=== PATIENT | male | born 1965 | race Caucasian/White ===

== ENCOUNTER 2020-08-31 18:07 | Emergency (ER) | payer OTHER ==
[2020-08-31] MEDS ORDERED: Morphine 4 MG/ML Syringe IVPUSH ONE (18:40)
[2020-08-31] MEDS ORDERED: Ondansetron 4 MG/2 ML SDV IVPUSH ONE (18:40)
--- NOTE | 2020-08-31 19:03 | EDM.PDOC ---
ED HPI GENERAL MEDICAL PROBLEM - General Chief Complaint: Upper Extremity Injury/Pain Stated Complaint: LT WRIST INJURED SEVERELY Time Seen by Provider: 08/31/20 18:38 Source of Information: Reports: Patient History Limitations: Reports: No Limitations - History of Present Illness INITIAL COMMENTS - FREE TEXT/NARRATIVE: HISTORY AND PHYSICAL: History of present illness: Review of systems: As per history of present illness and below otherwise all systems reviewed and negative. Past medical history: As per history of present illness and as reviewed below otherwise noncont ributory. Surgical history: As per history of present illness and as reviewed below otherwise noncontributory. Social history: See social history for further information Family history: As per history of present illness and as reviewed below otherwise noncontributory. Physical exam: General: Well developed and well nourished. Alert and orientated x 3. Nontoxic in appearance and in no acute distress. Vital signs are stable and have been reviewed by me. Nursing notes were reviewed. HEENT: Atraumatic, normocephalic, pupils equal and reactive bilaterally, negative for conjunctival pallor or scleral icterus, mucous membranes moist, TMs normal bilaterally, throat clear, neck supple, nontender, trachea midline. No drooling or trismus noted. No meningeal signs. No hot potato voice noted. Lungs: Clear to auscultation bilaterally. No wheezes, rales, or rhonchi. Chest nontender. Normal work of breathing, no accessory muscles used. Heart: S1S2, regular rate and rhythm without overt murmur, gallops, or rubs. No JVD. No peripheral edema Abdomen: Soft, nondistended, nontender. Normoactive bowel sounds. Negative for masses or costovertebral tenderness. Pelvis: Stable nontender. Genitourinary/Rectal: Deferred. Skin: Intact, warm, dry. No lesions or rashes noted. Hematologic: No petechiae or purpra. Mucosa appropriate color and normal nail bed color and refill. Extremities: Atraumatic, moves all extremities per self without difficulty or deficits, negative for cords or calf pain. Neurovascular unremarkable. Neuro: Awake, alert, oriented. Cranial nerves II through XII unremarkable. Cerebellum unremarkable. Motor and sensory unremarkable throughout. Exam nonfocal. Psychiatric: Mood and affect are appropriate. Normal thought process. Answering questions appropriately. Notes: *This patient was seen and evaluated during the 2019 SARS-CoV-2 novel coronavirus pandemic period. Community viral transmission is ongoing at time of this encounter and the emergency department is operating under pandemic response procedures. X-ray shows an acute, oblique, intra-articular, mildly angulated fracture of the distal radius. Custom fiberglass thumb spica splint applied. Pre and post pulses are strong with good cap refill. Skin pink, warm and dry. I have talked with the patient about today's findings, in addition to providing specific details for plan of care. Reassessment at the time of disposition demonstrates that the patient is in no acute distress. The patient is stable for discharge, counseling was provided and we discussed in great detail signs and symptoms that would prompt them to return to the Emergency Department. Medication, follow up and supportive care measures were reviewed and discussed. Voices understanding and is agreeable to plan of care. Denies any further questions or concerns at this time. Diagnostics: X-ray Therapeutics: Thumb spica fiberglass splint and sling Prescription: [place] (#30) Impression: Radial fracture, left Plan: 1. You were evaluated today on an emergent basis. Your x-ray shows a distal radius fracture. Rest, ice and elevate as able. Wear splint and sling as directed until you follow up with Orthopedics. Call tomorrow to set up a follow up appointment. 2. You can alternate Tylenol and ibuprofen as needed for pain and fever management. [place] as needed for moderate to severe pain. This medication may cause drowsiness, so do not take while driving or needing to be functioning outside the house. 3. If your symptoms should worsen, new symptoms develop or any of the signs and symptoms we discussed should arise please return to the emergency room or call 911 (if needed). Definitive disposition and diagnosis as appropriate pending reevaluation and review of above. left wrist Pain Score (Numeric/FACES): 9 - Related Data Allergies Allergy/AdvReac Type Severity Reaction Status Date / Time codeine Allergy Itching Verified 08/31/20 18:22 Home Meds: Home Meds . [No Known Home Meds] 08/31/20 [History] Past Medical History - Infectious Disease History Infectious Disease History: Reports: Chicken Pox, Shingles - Past Surgical History GI Surgical History: Reports: Cholecystectomy Musculoskeletal Surgical History: Reports: Other (See Below) Other Musculoskeletal Surgeries/Procedures:: right wrist Social & Family History - Family History Family Medical History: No Pertinent Family History Oncologic: Reports: Breast Other Oncologic Family History: Cancer - Tobacco Use Tobacco Use Status *Q: Former Tobacco User Used Tobacco, but Quit: Yes Month/Year Tobacco Last Used: 2011 - Recreational Drug Use Recreational Drug Use: No Review of Systems - Review of Systems Review Of Systems: Comprehensive ROS is negative, except as noted in HPI. ED EXAM, GENERAL - Physical Exam Exam: See Below (See dictation) Course - Vital Signs Last Recorded V/S: Last Vital Signs Temp 97.8 F 08/31/20 18:19 Pulse 74 08/31/20 18:19 Resp 20 08/31/20 18:19 BP 149/92 H 08/31/20 18:19 Pulse Ox 95 08/31/20 18:19 - Orders/Labs/Meds Orders: Active Orders 24 hr Category Date Time Status Wrist Comp Min 3V Lt [CR] Stat Exams 08/31/20 18:28 Taken Meds: Medications Discontinued Medications Generic Name Dose Route Start Last Admin Trade Name Carlyn PRN Reason Stop Dose Admin Morphine Sulfate 4 mg 08/31/20 18:40 Morphine 4 Mg/Ml Syringe IVPUSH 08/31/20 18:41 ONETIME ONE Ondansetron HCl 4 mg 08/31/20 18:40 Ondansetron 4 Mg/2 Ml Sdv IVPUSH 08/31/20 18:41 ONETIME ONE Departure - Departure Time of Disposition: 19:16 Disposition: Home, Self-Care 01 Clinical Impression: Distal radius fracture, left Qualifiers: Encounter type: initial encounter Fracture type: closed Fracture morphology: other fracture Qualified Code(s): S52.592A - Other fractures of lower end of left radius, initial encounter for closed fracture - Discharge Information Instructions: Radial Head Fracture, [id number] Referrals: PCP,None [Primary Care Provider] - Additional Instructions: The following information is given to patients seen in the emergency department who are being discharged to home. This information is to outline your options for follow-up care. We provide all patients seen in our emergency department with a follow-up referral. The need for follow-up, as well as the timing and circumstances, are variable depending upon the specifics of your emergency department visit. If you don't have a primary care physician on staff, we will provide you with a referral. We always advise you to contact your personal physician following an emergency department visit to inform them of the circumstance of the visit and for follow-up with them and/or the need for any referrals to a consulting specialist. The emergency department will also refer you to a specialist when appropriate. This referral assures that you have the opportunity for follow-up care with a specialist. All of these measure are taken in an effort to provide you with optimal care, which includes your follow-up. Under all circumstances we always encourage you to contact your private physician who remains a resource for coordinating your care. When calling for follow-up care, please make the office aware that this follow-up is from your recent emergency room visit. If for any reason you are refused follow-up, please contact the [facility] Emergency Department at and asked to speak to the emergency department charge nurse. [facility] Professional [address], [address] [place] [address] Dr Pascal, Orthopedist [facility] [address] [place] [address] Orthopedics at [facility] [address] [place] [address] [facility] [address] [place], [place] [id number] Thank you for choosing the [facility] emergency department in [place] for your medical needs today. It was a pleasure caring for you. Today you were seen in the emergency department for wrist fracture. 1. You were evaluated today on an emergent basis. Your x-ray shows a distal radius fracture. Rest, ice and elevate as able. Wear splint and sling as directed until you follow up with Orthopedics. Call tomorrow to set up a follow up appointment. 2. You can alternate Tylenol and ibuprofen as needed for pain and fever management. [place] as needed for moderate to severe pain. This medication may cause drowsiness, so do not take while driving or needing to be functioning outside the house. 3. If your symptoms should worsen, new symptoms develop or any of the signs and symptoms we discussed should arise please return to the emergency room or call 911 (if needed). Sepsis Event Note (ED) - Evaluation Sepsis Screening Result: No Definite Risk - Focused Exam Vital Signs: Vital Signs Temp Pulse Resp BP Pulse Ox 08/31/20 18:19 97.8 F 74 20 149/92 H 95 - My Orders Last 24 Hours: My Active Orders 08/31/20 18:28 Wrist Comp Min 3V Lt [CR] Stat - Assessment/Plan Last 24 Hours: My Active Orders 08/31/20 18:28 Wrist Comp Min 3V Lt [CR] Stat
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
== END 2020-08-31 19:50 | disposition home or self-care (01) ==
LOC: MW.ED 18:07
DX: S52.592A Other fractures of lower end of left radius, initial encounter for closed fracture (principal); Z88.5 Allergy status to narcotic agent; Z87.891 Personal history of nicotine dependence; V89.2XXA Person injured in unspecified motor-vehicle accident, traffic, initial encounter
CPT/HCPCS: 29125; 73110; 96374; 96375; 99283; J2270; J2405

== ENCOUNTER 2020-10-31 19:27 | Emergency (ER) | payer OTHER ==
[2020-10-31] MEDS ORDERED: Lidocaine 1% with EPINEPHrine 1:100,000 20 ML MDV INJECT ONE (20:47)
[2020-10-31] MEDS ORDERED: Diphtheria,Pertussis(Acell),Tetanus Vaccine 0.5 ML Syringe IM ONE (21:56)
--- NOTE | 2020-10-31 22:06 | CR ---
Indication: Laceration possible foreign body Technique: Four views of the right tibia and fibula. Comparison: O comparison Findings: Chondrocalcinosis. Normal alignment. Soft tissue laceration soft tissue gas anterior tibia soft tissues. No radiopaque foreign body. Minimal irregularity along the anterior proximal tibia seen on the lateral view without definite fracture visualized. Dictated by Mandy Sanchez MD @ 10/31/2020 10:05:[address] Mandy Sanchez @ Oct 31 2020 10:05PM
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
== END 2020-10-31 23:00 | disposition home or self-care (01) ==
LOC: MW.ED 19:27
DX: S81.811A Laceration without foreign body, right lower leg, initial encounter (principal); Z23 Encounter for immunization; Z88.5 Allergy status to narcotic agent; V19.9XXA Pedal cyclist (driver) (passenger) injured in unspecified traffic accident, initial encounter; W26.8XXA Contact with other sharp object(s), not elsewhere classified, initial encounter
CPT/HCPCS: 12002; 73590-26-RT; 73590-RT; 90471; 90715; 99283; 99283-25

== ENCOUNTER 2020-11-02 18:01 | Emergency (ER) | payer OTHER ==
[2020-11-02] MEDS ORDERED: Sodium Chloride 0.9% 2.5 ML Syringe FLUSH PRN (18:52)
[2020-11-02] MEDS ORDERED: Ketorolac 30 MG/ML SDV IVPUSH ONE (18:52)
[2020-11-02] MEDS ORDERED: Sodium Chloride 0.9% 10 ML Syringe FLUSH PRN (18:52)
[2020-11-02] MEDS ORDERED: Sodium Chloride 0.9% 1,000 ML IV ONE (18:52)
[2020-11-02] MEDS ORDERED: VANCOmycin 2 GM/400 ML 2 GM in Premix Bag 1 BAG IV ONE (18:57)
[2020-11-02 20:12] LABS: BLOOD UREA NITROGEN,BUN 20 mg/dL (7.0-18.0); CARBON DIOXIDE,CO2 25.4 mmol/L (21.0-32.0); CHLORIDE,CL 104 mmol/L (98-107); GLUCOSE RANDOM 115 mg/dL (74-106); POTASSIUM,K 3.8 mmol/L (3.5-5.1); SODIUM,NA 141 mmol/L (136-148)
--- NOTE | 2020-11-02 20:14 | EDM.PDOC ---
<King Dobson - Last Filed: 11/02/20 23:16> ED HPI GENERAL MEDICAL PROBLEM - General Chief Complaint: Wound Recheck Stated Complaint: STITCHES LOOK INFECTED Time Seen by Provider: 11/02/20 18:44 - Related Data Allergies Allergy/AdvReac Type Severity Reaction Status Date / Time codeine Allergy Itching Verified 11/02/20 18:16 Home Meds: Home Meds Sulfamethoxazole/Trimethoprim [Bactrim Ds Tablet] 1 each PO BID 10 Days #20 tablet 11/02/20 [Rx] cephALEXin [Keflex] 500 mg PO BID 11/02/20 [History] Departure - Departure Time of Disposition: 23:17 Disposition: Home, Self-Care 01 Condition: Good Clinical Impression: Wound infection - Discharge Information *PRESCRIPTION DRUG MONITORING PROGRAM REVIEWED*: Not Applicable *COPY OF PRESCRIPTION DRUG MONITORING REPORT IN PATIENT CODIE: Not Applicable Prescriptions: Sulfamethoxazole/Trimethoprim [Bactrim Ds Tablet] 1 each PO BID 10 Days #20 tablet Instructions: Wound Care, Adult Referrals: Kip Brown MD [Primary Care Provider] - Lior Danielson MD [Physician] - Forms: ED Department Discharge Additional Instructions: Please change the dressings at least once a day. If you have worsening swelling worsening pain spreading redness or fevers please return to the ER. Please follow-up with your primary care doctor if your primary care doctor would prefer you to see the general surgeon or unable to see you within the next few days and please follow-up with Dr. Danielson. The following information is given to patients seen in the emergency department who are being discharged to home. This information is to outline your options for follow-up care. We provide all patients seen in our emergency department with a follow-up referral. The need for follow-up, as well as the timing and circumstances, are variable depending upon the specifics of your emergency department visit. If you don't have a primary care physician on staff, we will provide you with a referral. We always advise you to contact your personal physician following an emergency department visit to inform them of the circumstance of the visit and for follow-up with them and/or the need for any referrals to a consulting specialist. The emergency department will also refer you to a specialist when appropriate. This referral assures that you have the opportunity for follow-up care with a specialist. All of these measure are taken in an effort to provide you with optimal care, which includes your follow-up. Under all circumstances we always encourage you to contact your private physician who remains a resource for coordinating your care. When calling for follow-up care, please make the office aware that this follow-up is from your recent emergency room visit. If for any reason you are refused follow-up, please contact the [facility] Emergency [facility] at and asked to speak to the emergency department charge nurse. - Assessment/Plan Assessment:: Patient received in signout from prior provider at [address] scan shows no clear provable retained foreign body. On my reassessment patient's pain is remarkably better." Patient was only given Toradol. There is some reference of edema in the anterior tibialis muscle. However the patient has very minimal pain at this time is inferior anterior tibialis compartment is soft on my evaluation he has no pain with passive stretch of the anterior tibialis muscle he has no paresthesias. In short no findings that would suggest compartment syndrome. Given the concern for wound infection plan to asked Dr. Connelly the general surgeon to evaluate the patient to see if he requires formal washout. 2315: Pt discussed with Dr. Danielson. Sutures were removed and we will add Bactrim to his antibiotics. Patient will follow up with his primary care provider if primary care uncomfortable or unable to see the patient patient to follow-up with Dr. Danielson. Strict return precautions discussed and understood. <Alecia Sharma - Last Filed: 11/03/20 10:43> ED HPI GENERAL MEDICAL PROBLEM - General Source of Information: Reports: Patient History Limitations: Reports: No Limitations - History of Present Illness INITIAL COMMENTS - FREE TEXT/NARRATIVE: HISTORY AND PHYSICAL: History of present illness: Patient is a 54-year-old male who presents to the emergency room with complaints of increased redness, swelling, and pain to his right lower leg. The patient was in the emergency department on 10/31/2020 after lodging a stick in his right lower leg which required suture repair. The patient has been on Keflex since then. He denies fever, nausea, vomiting, dental malaise, or any other associated systemic features of infection. The patient denies any fever, chills, headache, change in vision, syncope or near syncope. Denies any chest pain, back pain, shortness of breath or cough. Denies any abdominal pain, diarrhea, constipation or dysuria. Has not noted any blood in urine or stool. Patient has been eating and drinking appropriately. Emergency department the patient is hemodynamically stable with a pulse of 82 and a blood pressure of 131/71. He is afebrile with a temperature of 97.6. Review of systems: As per history of present illness and below otherwise all systems reviewed and negative. Past medical history: As per history of present illness and as reviewed below otherwise noncontributory. Surgical history: As per history of present illness and as reviewed below otherwise noncontributory. Social history: See social history for further information Family history: As per history of present illness and as reviewed below otherwise noncontributory. Physical exam: General: Well developed and well nourished. Alert and orientated x 3. Nontoxic in appearance and in no acute distress. Vital signs are stable and have been reviewed by me. Nursing notes were reviewed. HEENT: Atraumatic, normocephalic, pupils equal and reactive bilaterally, negative for conjunctival pallor or scleral icterus, mucous membranes moist, TMs normal bilaterally, throat clear, neck supple, nontender, trachea midline. No drooling or trismus noted. No meningeal signs. No hot potato voice noted. Lungs: Clear to auscultation bilaterally. No wheezes, rales, or rhonchi. Chest nontender. Normal work of breathing, no accessory muscles used. Heart: S1S2, regular rate and rhythm without overt murmur, gallops, or rubs. No JVD. No peripheral edema Abdomen: Soft, nondistended, nontender. Normoactive bowel sounds. Negative for masses or costovertebral tenderness. Skin: Right lower extremity wound approximated with sutures surrounded by erythema and swelling. Hematologic: No petechiae or purpra. Mucosa appropriate color and normal nail bed color and refill. Extremities: Right lower extremity with erythema and swelling. RLE tender to touch. Moves all other extremities per self without difficulty or deficits, negative for cords or calf pain. Neurovascular unremarkable. Neuro: Awake, alert, oriented. Cranial nerves II through XII unremarkable. Cerebellum unremarkable. Motor and sensory unremarkable throughout. Exam nonfocal. Psychiatric: Mood and affect are appropriate. Normal thought process. Answering questions appropriately. Notes: *This patient was seen and evaluated during the 2019 SARS-CoV-2 novel coronavirus pandemic period. Community viral transmission is ongoing at time of this encounter and the emergency department is operating under pandemic re sponse procedures. As stated above the patient is presenting with a right lower leg cellulitis around the approximated laceration. The patient stated a stick had pierced his leg on 10/31/2020 which was irrigated with 750 mL of saline and explored with no foreign body found. The patient states his leg is quite painful. The patient does not have any systemic signs such as general malaise or a fever of infection. I will order blood work, vancomycin IV, IV fluids, Toradol for pain control. Dr. Noble consulted on treatment. Dr. Pearson consulted on treatment. CT of his right lower leg ordered. 21:40: The patient states that his leg feels much better. He is now able to stand on his leg, however, it remains red, swollen and very tender to touch. Has had his CT and we are waiting on results. 22:00: Report to Dr. Dobson. Diagnostics: CBC, CMP, CT right lower leg Therapeutics: IV fluids, Toradol Definitive disposition and diagnosis as appropriate pending reevaluation and review of above. Right leg Pain Score (Numeric/FACES): 7 Past Medical History HEENT History: Reports: None Cardiovascular History: Reports: None Respiratory History: Reports: None Gastrointestinal History: Reports: None Genitourinary History: Reports: None Musculoskeletal History: Reports: None Neurological History: Reports: None Psychiatric History: Reports: None Endocrine/Metabolic History: Reports: None Insulin Pump Model and Nuclear Waste Process Operator: None Hematologic History: Reports: None Immunologic History: Reports: None Oncologic (Cancer) History: Reports: None Dermatologic History: Reports: None - Infectious Disease History Infectious Disease History: Reports: Chicken Pox, Shingles - Past Surgical History GI Surgical History: Reports: Cholecystectomy Musculoskeletal Surgical History: Reports: Other (See Below) Other Musculoskeletal Surgeries/Procedures:: right wrist Social & Family History - Family History Family Medical History: No Pertinent Family History Oncologic: Reports: Breast Other Oncologic Family History: Cancer - Tobacco Use Tobacco Use Status *Q: Never Tobacco User - Caffeine Use Caffeine Use: Reports: None - Recreational Drug Use Recreational Drug Use: No ED ROS GENERAL - Review of Systems Review Of Systems: Comprehensive ROS is negative, except as noted in HPI. ED EXAM, SKIN/RASH Exam: See Below (See dictation) Course - Vital Signs Last Recorded V/S: Last Vital Signs Temp 97.6 F 11/02/20 18:17 Pulse 83 11/02/20 19:37 Resp 20 11/02/20 19:37 BP 141/76 H 11/02/20 19:37 Pulse Ox 94 L 11/02/20 19:37 - Orders/Labs/Meds Orders: Active Orders 24 hr Category Date Time Status Saline Lock Insert [OM.PC] Stat Oth 11/02/20 18:52 Ordered Labs: Laboratory Tests 11/02/20 11/02/20 11/02/20 Range/Units 19:32 19:32 20:45 WBC 5.15 (4.0-11.0) K/uL RBC 4.73 (4.50-5.90) M/uL Hgb 15.0 (13.0-17.0) g/dL Hct 44.8 (38.0-50.0) % MCV 94.7 (80.0-98.0) fL MCH 31.7 (27.0-32.0) pg MCHC 33.5 (31.0-37.0) g/dL RDW Std Deviation 49.7 (28.0-62.0) fl RDW Coeff of Polly 14 (11.0-15.0) % Plt Count 149 L (150-400) K/uL MPV 10.20 (7.40-12.00) fL Neut % (Auto) 67.1 (48.0-80.0) % Lymph % (Auto) 20.4 (16.0-40.0) % [place] % (Auto) 11.1 (0.0-15.0) % Eos % (Auto) 0.8 (0.0-7.0) % Baso % (Auto) 0.6 (0.0-1.5) % Neut # (Auto) 3.5 (1.4-5.7) K/uL Lymph # (Auto) 1.1 (0.6-2.4) K/uL [place] # (Auto) 0.6 (0.0-0.8) K/uL Eos # (Auto) 0.0 (0.0-0.7) K/uL Baso # (Auto) 0.0 (0.0-0.1) K/uL Nucleated RBC % 0.0 /100WBC Nucleated RBCs # 0 K/uL Sodium 141 (136-148) mmol/L Potassium 3.8 (3.5-5.1) mmol/L Chloride 104 (98-107) mmol/L Carbon Dioxide 25.4 (21.0-32.0) mmol/L BUN 20 H (7.0-18.0) mg/dL Creatinine 1.1 (0.8-1.3) mg/dL Est Cr Clr Drug Dosing 79.86 mL/min Estimated GFR (MDRD) > 60.0 ml/min Glucose 115 H (74-106) mg/dL Calcium 8.5 (8.5-10.1) mg/dL Total Bilirubin 0.6 (0.2-1.0) mg/dL AST 143 H (15-37) IU/L ALT 121 H (14-63) IU/L Alkaline Phosphatase 110 (46-116) U/L Total Protein 7.2 (6.4-8.2) g/dL Albumin 3.5 (3.4-5.0) g/dL Globulin 3.7 (2.6-4.0) g/dL Albumin/Globulin Ratio 0.9 (0.9-1.6) SARS-CoV-2 RNA (DMITRY) NEGATIVE (NEGATIVE) Meds: Medications Discontinued Medications Generic Name Dose Route Start Last Admin Trade Name Freq PRN Reason Stop Dose Admin Bacitracin 1 dose 11/02/20 23:15 Bacitracin Oint 1 Gm U/D Packet TOP 11/02/20 23:16 ONETIME ONE Sodium Chloride 1,000 mls @ 999 mls/hr 11/02/20 18:52 11/02/20 19:17 Normal Saline IV 11/02/20 19:52 999 mls/hr .BOLUS ONE Administration Vancomycin HCl 2 gm/ Premix 400 mls @ 200 mls/hr 11/02/20 18:57 11/02/20 19:26 IV 11/02/20 20:56 200 mls/hr STAT ONE Administration Iopamidol 2,100 ml 11/02/20 21:02 11/02/20 21:24 Iopamidol 755 Mg/Ml 500 Ml Multipack Bottle IVPUSH 11/02/20 21:03 100 ml ONETIME STA Administration Ketorolac Tromethamine 30 mg 11/02/20 18:52 11/02/20 19:17 Ketorolac 30 Mg/Ml Sdv IVPUSH 11/02/20 18:53 30 mg ONETIME ONE Administration Sodium Chloride 10 ml 11/02/20 18:52 Sodium Chloride 0.9% 10 Ml Syringe FLUSH ASDIRECTED PRN Keep Vein Open Sodium Chloride 2.5 ml 11/02/20 18:52 Sodium Chloride 0.9% 2.5 Ml Syringe FLUSH ASDIRECTED PRN Keep Vein Open Sepsis Event Note (ED) - Evaluation Sepsis Screening Result: No Definite Risk - My Orders Last 24 Hours: My Active Orders 11/02/20 18:52 Saline Lock Insert [OM.PC] Stat - Assessment/Plan Last 24 Hours: My Active Orders 11/02/20 18:52 Saline Lock Insert [OM.PC] Stat
[2020-11-02] MEDS ORDERED: Iopamidol 755 MG/ML 500 ML Multipack Bottle IVPUSH STA (21:02)
--- NOTE | 2020-11-02 22:37 | CT ---
For Patients: As a result of the Century Cures Act, medical imaging exams and procedure reports are released immediately into your electronic medical record. You may view this report before your referring provider. If you have questions, please contact your health care provider. INDICATION: Penetrating trauma with erythema and edema. TECHNIQUE: Right tibia/fibula CT with intravenous contrast, 100 mL Isovue-300. Coronal and sagittal reformats. Notably, the distal tibia/fibula and ankle joint are excluded from the field of view. COMPARISON: Right tibia/fibula radiographs 10/31/2020. FINDINGS: Osseous: No acute fracture, osseous destruction, or periosteal reaction. Corticated ossific density overlying the tibial tubercle, likely sequela of remote [place]-Schlatter`s disease. - Joints: The right ankle is not included within the field of view. Knee demonstrates mild tricompartmental degenerative changes with extensive chondrocalcinosis. No appreciable joint effusion. - Soft tissues: Extensive subcutaneous edema throughout the anterior aspect of the right lower leg most pronounced proximally. Elongated mildly hyperdense collection within the subcutaneous tissues overlying the anterior compartment musculature in the proximal lower leg measuring 2.4 x 1.0 x 2.7 cm (series 201, image 70; series 2 4, image 49), likely a small hematoma. Multiple gaseous locules extending along the superficial investing fascia of the anterior muscular compartment at the level of the proximal and mid lower leg. No radiopaque foreign body or additional collection identified. IMPRESSION: 1. Sequela of penetrating injury to the anterior aspect of the right proximal lower leg. No radiopaque foreign body or organized/drainable collection identified. 2. Multiple small gaseous locules extending along the anterior superficial investing fascia of the right proximal and mid lower leg, possibly related to penetrating injury though gas-forming infection could have a similar appearance and should be clinically evaluated. 3. Extensive subcutaneous edema predominating in the anterior aspect of the right lower leg, as may be seen with cellulitis in appropriate clinical setting. 4. Probable small anterior subcutaneous hematoma near the site of penetrating injury. Please note that all CT scans at this facility use dose modulation, iterative reconstruction, and/or weight-based dosing when appropriate to reduce radiation dose to as low as reasonably achievable. Dictated by Lior Mullins MD @ 11/03/2020 7:28:[address] Lior Mullins @ Nov 03 2020 7:28AM
[2020-11-02] MEDS ORDERED: Bacitracin Oint 1 GM U/D Packet TOP ONE (23:15)
== END 2020-11-02 23:54 | disposition home or self-care (01) ==
LOC: MW.ED 18:01
DX: T81.40XA Infection following a procedure, unspecified, initial encounter (principal); Z88.5 Allergy status to narcotic agent; Z20.822 Contact with and (suspected) exposure to COVID-19
CPT/HCPCS: 36415; 73701; 80053; 85025; 87635; 96365; 96366; 96375; 99284; J1885; J3370; J7030; Q9967; U0002

== ENCOUNTER 2021-04-24 13:22 | Emergency (ER) | payer OTHER ==
[2021-04-24] MEDS ORDERED: Acetaminophen 500 MG Tab PO ONE (13:49)
--- NOTE | 2021-04-24 14:23 | CR ---
INDICATION: Chest pain and shortness of breath. Worsening cough. TECHNIQUE: Chest 1 view. COMPARISON: None. FINDINGS: Cardiovascular and mediastinum: Heart size and vasculature are normal in caliber and appearance. Lungs and pleural spaces: Possible infiltrates in the lateral aspect of the left mid lung zone. Remainder of the lungs and pleural spaces are clear. Bones and soft tissues: No significant findings. IMPRESSION: Possible left lateral lung infiltrates. Acute pneumonia or pneumonitis is possible. Remainder of exam is unremarkable. Dictated by Gregory Peterson MD @ 04/24/2021 2:22:52 PM (Electronically Signed)
[2021-04-24 14:29] LABS: BLOOD UREA NITROGEN,BUN 16 mg/dL (7.0-18.0); CARBON DIOXIDE,CO2 28.7 mmol/L (21.0-32.0); CHLORIDE,CL 102 mmol/L (98-107); GLUCOSE RANDOM 100 mg/dL (74-106); SODIUM,NA 141 mmol/L (136-148)
[2021-04-24] MEDS ORDERED: Albuterol/Ipratropium 3.0-0.5 MG/3 ML Neb Soln NEB ONE (14:29)
[2021-04-24 14:39] LABS: CORONAVIRUS COVID-19 NAA POSITIVE (NEGATIVE); INFLUENZA A NAA NEGATIVE (NEGATIVE); INFLUENZA B NAA NEGATIVE (NEGATIVE)
--- NOTE | 2021-04-24 15:59 | EDM.PDOC ---
ED HPI GENERAL MEDICAL PROBLEM - General Chief Complaint: Respiratory Problem Stated Complaint: SHORTNESS OF BREATHE,CHEST PAIN Time Seen by Provider: 04/24/21 13:35 - History of Present Illness INITIAL COMMENTS - FREE TEXT/NARRATIVE: CHIEF COMPLAINT(S): Chest pain HISTORY OF PRESENT ILLNESS: This is a 55-year-old man without any significant past medical history who comes to the emergency department with a chief co mplaint of chest pain. Patient states that he has been experiencing chest pain on and off for the last 8 days. He describes the chest pain as achy and rated 4-5 out of 10. He describes it as constant. He denies any radiation of this pain. He states that he has exacerbation of his pain when he takes deep breaths. He denies any hemoptysis, lower extremity edema, recent travel, recent surgery or prior history of DVT or PE. He states that he does have a nonproductive cough. He denies any fever, chills, or body aches. He states that he is not vaccinated against Covid but states that he is not exposed to Covid. States that he has not taken anything for the pain. He denies any other symptoms. REVIEW OF SYSTEMS: Constitutional: Denies fever, chills. Eyes: Denies eye pain Ears, Nose, Mouth, & Throat: Denies earache Cardiovascular: Positive for chest pain Respiratory: Positive for shortness of breath and nonproductive cough. Gastrointestinal: Denies Nausea, vomiting, diarrhea, hematochezia. Genitourinary: Denies hematuria Skin:Denies a rash MSK: Denies joint pain Neurological: Denies blurred vision Psychiatric: Denies depression PAST MEDICAL HISTORY: As per history of present illness and as reviewed below otherwise noncontributory. SURGICAL HISTORY: As per history of present illness and as reviewed below otherwise noncontributory. SOCIAL HISTORY: As per history of present illness and as reviewed below otherwise noncontributory. FAMILY HISTORY: As per history of present illness and as reviewed below otherwise noncontributory. EXAMINATION OF ORGAN SYSTEMS/BODY AREAS: Constitutional: Blood pressure was 128/83, heart rate 90, respiratory rate 24 with an oxygen saturation of 95% on room air. Temperature 38.4. General: Well-appearing man who is in no acute distress Psychiatric: Appropriate mood and affect. Eyes: No scleral icterus or conjunctival erythema ENMT: Moist mucous membranes. No pharyngeal erythema Cardiovascular: Regular, rate, and rhythm. No gallops, murmurs, or rubs. Bilateral upper extremity pulses symmetric and intact. No peripheral edema. No JVD. Respiratory: Mild expiratory wheezing. No rales or rhonchi. Patient speaking in full sentences Gastrointestinal: Soft, non-tender, non-distended. Normoactive bowel sounds Genitourinary: No suprapubic tenderness Musculoskeletal: Normal range of motion. Skin: No lesions or abrasions. Neurological: Alert, GCS 15 MEDICAL DECISION MAKING AND COURSE IN THE ED WITH INTERPRETATION/REVIEW OF DIAGNOSTIC STUDIES: This is a 55-year-old man without any reported past medical history and prior tobacco use who presents to the emergency department with chest pain and pleuritic chest pain with some wheezing on examination. I do suspect the possibility of underlying COPD that is undiagnosed. We will provide the patient with 1 DuoNeb treatment and reevaluate. For the fever we will provide the patient with Tylenol. The patient currently does meet SIRS and septic criteria however symptoms are also consistent with Covid. We will evaluate for viral cause for symptoms at this time prior to initiating antibiotics or obtaining blood cultures. Will trend CBC, CMP, INR, lactic acid, magnesium and troponin. Obtain a chest x-ray. Cardiac monitoring at this time did reveal sinus rhythm and pulse oximetry with good waveform was 98% on room air. Patient was amenable to this plan DDx: COVID-19 pneumonia, influenza, pneumonia, ACS Laboratory: CBC is unremarkable. INR is normal. CMP reveals elevated creatinine of 1.4. Transaminitis with an AST of 43 and ALT of 68. Troponin is negative. Covid is positive. Influenza is negative The radiological images were viewed by myself along with reading the report from the radiologist. Chest x-ray reveals possible left lateral lung infiltrates. After labs and imaging I did reevaluate the patient. At this time the patient's vitals continue to remain stable. I did discuss the results with the patient. He is to isolate for the additional 2 days and I did discuss Regeneron therapy with the patient. He was amenable to this plan therefore we did fax the patient's information over for the infusion. We did discuss strict return precautions. The patient was amenable to discharge and had no further questions. I did also provide the patient with an albuterol inhaler given possibility of underlying COPD. DISPOSITION: The patient was discharged home in stable condition. The patient will follow up with primary care physician after isolation CONDITION: Fair PROCEDURES: None FINAL IMPRESSION(S)/DIAGNOSES: 1. Acute COVID-19 pneumonia 2. Acute wheezing likely secondary to undiagnosed COPD Tray Bautista M.D. chest Pain Score (Numeric/FACES): 4 - Related Data Allergies Allergy/AdvReac Type Severity Reaction Status Date / Time codeine Allergy Itching Verified 04/24/21 13:25 Home Meds: Home Meds Albuterol Sulfate [Albuterol Sulfate Hfa] 8.5 gm IH Q4H #1 [email or web address] 04/24/21 [Rx] Past Medical History HEENT History: Reports: None Cardiovascular History: Reports: None Respiratory History: Reports: None Gastrointestinal History: Reports: None Genitourinary History: Reports: None Musculoskeletal History: Reports: None Neurological History: Reports: None Psychiatric History: Reports: None Endocrine/Metabolic History: Reports: None Insulin Pump Model and Pyrotechnic Assembler: None Hematologic History: Reports: None Immunologic History: Reports: None Oncologic (Cancer) History: Reports: None Dermatologic History: Reports: None - Infectious Disease History Infectious Disease History: Reports: Chicken Pox, Shingles - Past Surgical History GI Surgical History: Reports: Cholecystectomy Male Surgical History: Reports: None Musculoskeletal Surgical History: Reports: Other (See Below) Other Musculoskeletal Surgeries/Procedures:: right wrist Social & Family History - Family History Family Medical History: No Pertinent Family History Oncologic: Reports: Breast Other Oncologic Family History: Cancer - Tobacco Use Tobacco Use Status *Q: Never Tobacco User Second Hand Smoke Exposure: No - Caffeine Use Caffeine Use: Reports: None - Recreational Drug Use Recreational Drug Use: No ED ROS GENERAL - Review of Systems Review Of Systems: See Below ED EXAM, GENERAL - Physical Exam Exam: See Below Course - Vital Signs Last Recorded V/S: Last Vital Signs Temp 38.4 C H 04/24/21 14:55 Pulse 90 04/24/21 13:25 Resp 16 04/24/21 16:10 BP 128/83 04/24/21 16:10 Pulse Ox 95 04/24/21 16:10 - Orders/Labs/Meds Labs: Laboratory Tests 04/24/21 04/24/21 04/24/21 Range/Units 13:38 13:44 13:44 WBC 3.55 L (4.0-11.0) K/uL RBC 5.01 (4.50-5.90) M/uL Hgb 15.8 (13.0-17.0) g/dL Hct 46.2 (38.0-50.0) % MCV 92.2 (80.0-98.0) fL MCH 31.5 (27.0-32.0) pg MCHC 34.2 (31.0-37.0) g/dL RDW Std Deviation 45.0 (28.0-62.0) fl RDW Coeff of Polly 13 (11.0-15.0) % Plt Count 152 (150-400) K/uL MPV 10.40 (7.40-12.00) fL Neut % (Auto) 65.0 (48.0-80.0) % Lymph % (Auto) 26.2 (16.0-40.0) % Grady % (Auto) 8.5 (0.0-15.0) % Eos % (Auto) 0.0 (0.0-7.0) % Baso % (Auto) 0.3 (0.0-1.5) % Neut # (Auto) 2.3 (1.4-5.7) K/uL Lymph # (Auto) 0.9 (0.6-2.4) K/uL Grady # (Auto) 0.3 (0.0-0.8) K/uL Eos # (Auto) 0.0 (0.0-0.7) K/uL Baso # (Auto) 0.0 (0.0-0.1) K/uL Nucleated RBC % 0.0 /100WBC Nucleated RBCs # 0 K/uL INR 0.94 Sodium (136-148) mmol/L Potassium (3.5-5.1) mmol/L Chloride (98-107) mmol/L Carbon Dioxide (21.0-32.0) mmol/L BUN (7.0-18.0) mg/dL Creatinine (0.8-1.3) mg/dL Est Cr Clr Drug Dosing mL/min Estimated GFR (MDRD) ml/min Glucose (74-106) mg/dL Lactic Acid (0.4-2.0) mmol/L Calcium (8.5-10.1) mg/dL Magnesium (1.8-2.4) mg/dL Total Bilirubin (0.2-1.0) mg/dL AST (15-37) IU/L ALT (14-63) IU/L Alkaline Phosphatase (46-116) U/L Troponin I (0.000-0.056) ng/mL Total Protein (6.4-8.2) g/dL Albumin (3.4-5.0) g/dL Globulin (2.6-4.0) g/dL Albumin/Globulin Ratio (0.9-1.6) Influenza Type A RNA NEGATIVE (NEGATIVE) Influenza Type B RNA NEGATIVE (NEGATIVE) SARS-CoV-2 RNA (DMITRY) POSITIVE H (NEGATIVE) 04/24/21 04/24/21 Range/Units 13:44 14:11 WBC (4.0-11.0) K/uL RBC (4.50-5.90) M/uL Hgb (13.0-17.0) g/dL Hct (38.0-50.0) % MCV (80.0-98.0) fL MCH (27.0-32.0) pg MCHC (31.0-37.0) g/dL RDW Std Deviation (28.0-62.0) fl RDW Coeff of Polly (11.0-15.0) % Plt Count (150-400) K/uL MPV (7.40-12.00) fL Neut % (Auto) (48.0-80.0) % Lymph % (Auto) (16.0-40.0) % Grady % (Auto) (0.0-15.0) % Eos % (Auto) (0.0-7.0) % Baso % (Auto) (0.0-1.5) % Neut # (Auto) (1.4-5.7) K/uL Lymph # (Auto) (0.6-2.4) K/uL Grady # (Auto) (0.0-0.8) K/uL Eos # (Auto) (0.0-0.7) K/uL Baso # (Auto) (0.0-0.1) K/uL Nucleated RBC % /100WBC Nucleated RBCs # K/uL INR Sodium 141 (136-148) mmol/L Potassium 4.0 (3.5-5.1) mmol/L Chloride 102 (98-107) mmol/L Carbon Dioxide 28.7 (21.0-32.0) mmol/L BUN 16 (7.0-18.0) mg/dL Creatinine 1.4 H (0.8-1.3) mg/dL Est Cr Clr Drug Dosing 62.00 mL/min Estimated GFR (MDRD) 52.2 ml/min Glucose 100 (74-106) mg/dL Lactic Acid 1.7 (0.4-2.0) mmol/L Calcium 8.6 (8.5-10.1) mg/dL Magnesium 1.9 (1.8-2.4) mg/dL Total Bilirubin 0.5 (0.2-1.0) mg/dL AST 43 H (15-37) IU/L ALT 68 H (14-63) IU/L Alkaline Phosphatase 88 (46-116) U/L Troponin I < 0.050 (0.000-0.056) ng/mL Total Protein 7.9 (6.4-8.2) g/dL Albumin 3.6 (3.4-5.0) g/dL Globulin 4.3 H (2.6-4.0) g/dL Albumin/Globulin Ratio 0.8 L (0.9-1.6) Influenza Type A RNA (NEGATIVE) Influenza Type B RNA (NEGATIVE) SARS-CoV-2 RNA (DMITRY) (NEGATIVE) Meds: Medications Discontinued Medications Generic Name Dose Route Start Last Admin Trade Name Freq PRN Reason Stop Dose Admin Acetaminophen 1,000 mg 04/24/21 13:49 04/24/21 14:55 Acetaminophen 500 Mg Tab PO 04/24/21 13:50 1,000 mg ONETIME ONE Administration Albuterol/Ipratropium 3 ml 04/24/21 14:29 04/24/21 14:55 Albuterol/Ipratropium 3.0-0.5 Mg/3 Ml Neb Soln NEB 04/24/21 14:30 3 ml ONETIME ONE Administration Departure - Departure Time of Disposition: 15:58 Disposition: Home, Self-Care 01 Condition: Fair Clinical Impression: COVID-19, Bronchitis - Discharge Information *PRESCRIPTION DRUG MONITORING PROGRAM REVIEWED*: No *COPY OF PRESCRIPTION DRUG MONITORING REPORT IN PATIENT CODIE: No Prescriptions: Albuterol Sulfate [Albuterol Sulfate Hfa] 8.5 gm IH Q4H #1 [email or web address] Instructions: 10 Things You Can Do to Manage Your COVID-19 Symptoms at Home - [facility] (12/16/2020), Acute Bronchitis, Adult, [id number], Symptoms of COVID-19 - [facility] (07/25/2020) Referrals: Coty Polo PA [Primary Care Provider] - Forms: ED Department Discharge Additional Instructions: You should take acetaminophen 500-1000 mg every 6 hours as needed for fever and muscle aches. Please drink plenty of fluids and get plenty of rest over the next several days. We would recommend that she get a pulse oximeter from the pharmacy to keep an eye on your oxygen level. If your oxygen level drops below 91%, you should return to the ED for evaluation. You should return to the ER sooner if you start having any symptoms of shortness of breath or any other new or concerning symptoms. 1. Your COVID-19 screening is positive. That means you do have the coronavirus and you are considered contagious. Your vital signs and oxygen saturation are well enough that you were able to monitor your symptoms at home. Continue to monitor for trouble breathing, new confusion or inability to arouse, bluish lips or face or any of the other symptoms we discussed -if this occurs please return to the emergency room. 2. Please self quarantine over the next 10 days. Inform any persons that you have been in contact with since you started becoming symptomatic that you have tested positive; they should be made aware and take the appropriate steps as needed. 3. May alternate Tylenol and ibuprofen as needed for pain and fever management. 4. The [facility] department will be calling you and following up with you. The [place] COVID 19 Hotline phone number , They are open Saturday - Sat day 7am - 7pm. Follow up with your primary care provider for re-evaluation and re-testing after the 10 day quarantine and discuss when you should be seen. [facility] [address] [place] [id number] [address] [place] [address] The patient is informed of any results of their evaluation and diagnostic workup and all questions are answered. They are given discharge instructions and return precautions. The patient is stable for discharge. The patient states they understand and agree with the plan and that they will return if their symptoms get worse or if they have any new concerns. The following information is given to patients seen in the emergency department who are being discharged to home. This information is to outline your options for follow-up care. We provide all patients seen in our emergency department with a follow-up referral. The need for follow-up, as well as the timing and circumstances, are variable depending upon the specifics of your emergency department visit. If you don't have a primary care physician on staff, we will provide you with a referral. We always advise you to contact your personal physician following an emergency department visit to inform them of the circumstance of the visit and for follow-up with them and/or the need for any referrals to a consulting specialist. The emergency department will also refer you to a specialist when appropriate. This referral assures that you have the opportunity for follow-up care with a specialist. All of these measure are taken in an effort to provide you with optimal care, which includes your follow-up. Under all circumstances we always encourage you to contact your private physician who remains a resource for coordinating your care. When calling for follow-up care, please make the office aware that this follow-up is from your recent emergency room visit. If for any reason you are refused follow-up, please contact the [facility] Emergency Department at and asked to speak to the emergency department charge nurse. Sepsis Event Note (ED) - Evaluation Sepsis Screening Result: No Definite Risk
--- NOTE | 2021-04-24 18:32 | PCM.EKG ---
#1 Interpretation EKG Date: 04/24/21 Time: 13:33 Rhythm: NSR Rate (Beats/Min): 89 [place]: Normal P-Wave: Present QRS: RBBB ST-T: Normal QT: Normal Comparison: NA - No Prior EKG EKG Interpretation Comments: Sinus Rhythm with RBBB
== END 2021-04-24 16:15 | disposition home or self-care (01) ==
LOC: MW.ED 13:22
DX: U07.1 COVID-19 (principal); J12.82 Pneumonia due to coronavirus disease 2019; J40 Bronchitis, not specified as acute or chronic; Z88.5 Allergy status to narcotic agent
CPT/HCPCS: 0240U; 36415; 71045; 80053; 83605; 83735; 84484; 85025; 85610; 99285; A9270; J7620-GY

== ENCOUNTER 2024-07-28 11:04 | Emergency (ER) | payer BC ==
[2024-07-28] MEDS: oxyCODONE 5 MG Tab PO STA (12:54)
[2024-07-28] MEDS: Ondansetron 4 MG Tab.DIS PO STA (12:55)
[2024-07-28] MEDS: Diazepam 2 MG Tab PO STA (15:24)
== END 2024-07-28 15:36 | disposition home or self-care (01) ==
LOC: MW.ED 11:04
DX: M62.830 Muscle spasm of back (principal); F17.210 Nicotine dependence, cigarettes, uncomplicated; Z75.8 Other problems related to medical facilities and other health care; Z88.5 Allergy status to narcotic agent; Z79.899 Other long term (current) drug therapy; Z90.49 Acquired absence of other specified parts of digestive tract; W00.0XXA Fall on same level due to ice and snow, initial encounter; Y93.89 Activity, other specified; Y99.0 Civilian activity done for income or pay
CPT/HCPCS: 71250; 72128; 72131; 96372; 99283; A9270; J3360